=== PATIENT | female | born 1975 | race Caucasian/White ===

== ENCOUNTER 2016-04-22 17:07 | Emergency (ER) | payer MEDICARE, OTHER | END 2016-04-22 21:18 | disposition left against medical advice (07) | LOC: ER 17:07 | DX: Z53.21 Procedure and treatment not carried out due to patient leaving prior to being seen by health care provider (principal) ==

== ENCOUNTER 2016-06-19 22:36 | Emergency (ER) | payer MEDICARE, OTHER | END 2016-06-20 00:30 | disposition home or self-care (01) | LOC: ER 22:36 | DX: R07.81 Pleurodynia (principal); F32.9 Major depressive disorder, single episode, unspecified; I10 Essential (primary) hypertension; F17.210 Nicotine dependence, cigarettes, uncomplicated; Z90.710 Acquired absence of both cervix and uterus; Z98.51 Tubal ligation status; Z79.899 Other long term (current) drug therapy; Z88.5 Allergy status to narcotic agent; Z88.8 Allergy status to other drugs, medicaments and biological substances; X50.1XXA Overexertion from prolonged static or awkward postures, initial encounter | CPT/HCPCS: 96372; J1885 ==